=== PATIENT | male | born 1960 | race Hispanic/Latino ===

== ENCOUNTER 2024-01-08 19:04 | Inpatient (IN) | payer BC ==
[~2024-01-08] VITALS: Ht 167.6 cm; Wt 107.2 kg
[~2024-01-08 19:04] MED LIST: DEXAMETHASONE SOD PHOS INJ 4 MG/ML SDV ONE; EPHEDRINE SULFATE INJ 50 MG/ML VIAL ONE; LIDOCAINE HCL 2% LOCAL INJ 5 ML SDV VIAL INJ ONE; ONDANSETRON HCL INJ 2MG/ML 2ML 2 MG/ML VIAL ONE; PROPOFOL IV EMULSION 10 MG/ML 20 ML VIAL ONE; ROCURONIUM BROMIDE 10 MG/ML 5ML VIAL IV ONE; SEVOFLURANE INHAL SOLN 250 ML PEN BTL ONE
[2024-01-08 19:30] VITALS: PULSE 99; RESP 18; TEMP 101.2
[2024-01-08] MEDS ORDERED: IOPAMIDOL 370 MG/ML 100 ML INFUS..BTL INJ ONE (19:30)
[2024-01-08] MEDS: SODIUM CHLORIDE 0.9% 1000ML 1,000 ML IV STA (20:02)
[2024-01-08] MEDS: ACETAMINOPHEN 325 MG TAB PO STA (20:02)
[2024-01-08] MEDS: FAMOTIDINE 20 MG/2 ML VIAL IV STA (20:02)
[2024-01-08] MEDS ORDERED: ONDANSETRON HCL INJ 2MG/ML 2ML 2 MG/ML VIAL IV PRN (20:30)
[2024-01-08 21:29] VITALS: BP 129/65; PULSE 84; RESP 18; TEMP 98.3; O2SAT 96
[2024-01-08 22:00] VITALS: BP 129/65; PULSE 84; RESP 18; TEMP 98.3; O2SAT 96
[2024-01-08] MEDS: SODIUM CHLORIDE 0.9% 1000ML 1,000 ML IV SCH (23:08)
[2024-01-09] VITALS (7 sets, daily range): BP systolic 116–147; BP diastolic 63–70; PULSE 65–85; RESP 16–22; TEMP 97.5–98; O2SAT 97–99
[2024-01-09] MEDS ORDERED: LISINOPRIL10 MG PO (04:27)
[2024-01-09] MEDS ORDERED: HYDRALAZINE HCL50 MG PO (04:28)
[2024-01-09] MEDS ORDERED: CRESTOR40 MG (04:30)
[2024-01-09] MEDS ORDERED: FUROSEMIDE20 MG PO (04:31)
[2024-01-09] MEDS ORDERED: AMLODIPINE BESYL5 MG PO (04:34)
[2024-01-09] MEDS ORDERED: FERROUS SULFAT325 M1 PO (04:34)
[2024-01-09] MEDS ORDERED: HERCEPTIN150 MG SC (04:34)
[2024-01-09] MEDS ORDERED: ALBUTEROL/IPRATROPIUM 3 ML NEB NEB PRN (06:30)
[2024-01-09] MEDS ORDERED: ACETAMINOPHEN 325 MG TAB PO PRN (06:30)
[2024-01-09 10:00] LABS: BASOPHILS # (AUTO) 0.1 (0.0-0.1); BASOPHILS % 0.3 % (0.0-1.0); EOSINOPHILS # (AUTO) 0.2 (0.0-0.4); EOSINOPHILS % 0.8 % (0.0-6.0); HEMATOCRIT 33.6 % (38.2-49.6); LYMPHOCYTES # (AUTO) 1.1 (1.0-3.2); LYMPHOCYTES % 5.8 % (18.0-39.1); MEAN CORPUSCULAR HEMOGLOBIN 30.2 pg (28-32); MEAN CORPUSCULAR HGB CONC 32.7 g/dL (31-35); MEAN CORPUSCULAR VOLUME 92.3 fL (81-99); MONOCYTES # (AUTO) 1.2 (0.2-0.8); MONOCYTES % 6.6 % (4.4-11.3); NEUTROPHILS % 85.8 % (38.7-80.0); PLATELET COUNT 189 x10e3/uL (140-360); RED BLOOD COUNT 3.64 x10e6/uL (4.3-5.7); RED CELL DISTRIBUTION WIDTH 12.9 % (11.7-14.4); WHITE BLOOD COUNT 18.66 x10e3/uL (4.8-10.8)
[2024-01-09 10:19] LABS: ALBUMIN 2.7 g/dL (3.5-5.0); BILIRUBIN,TOTAL 1.4 mg/dL (0.2-1.2); CHOL/HDL RATIO 4.9 (3.9-4.7); TOTAL PROTEIN 6.5 g/dL (6.5-8.1)
[2024-01-09] MEDS ORDERED: BUPIVACAINE 0.25% 30ML SDV ONE (10:33)
[2024-01-09] MEDS ORDERED: BUPIVACAINE 0.5%/EPI 30 ML SDV INJ ONE (10:33)
[2024-01-09 11:16] LABS: ALBUMIN 2.7 g/dL (3.5-5.0); ALBUMIN/GLOBULIN RATIO 0.7 (0.8-2.0); ANION GAP 16.7 mmol/L (8-16); BILIRUBIN,TOTAL 1.4 mg/dL (0.2-1.2); CALCIUM 7.4 mg/dL (8.4-10.2); CREATININE, SERUM 3.43 mg/dL (0.72-1.25); POTASSIUM 3.7 mmol/L (3.5-5.1); TOTAL PROTEIN 6.6 g/dL (6.5-8.1)
[2024-01-09] MEDS ORDERED: FENTANYL CITRATE/PF 100MCG/2 ML INJ ONE (12:41)
[2024-01-09] MEDS ORDERED: MIDAZOLAM HCL 2 MG/2 ML VIAL ONE (12:41)
[2024-01-09] MEDS: Morphine 4mg INJECTION 4 MG/ML INJ IV PRN (21:41)
[2024-01-10] VITALS (8 sets, daily range): BP systolic 134–167; BP diastolic 69–82; PULSE 75–84; RESP 18–20; TEMP 97.5–98.6; O2SAT 97–98
[2024-01-10] MEDS: LIDOCAINE HCL 2% LOCAL 20 ML VIAL INJ ONE ×2 (01:19)
[2024-01-10] MEDS ORDERED: DEXTROSE 50% SYRINGE 50 ML IV PRN (08:00)
[2024-01-10 08:17] LABS: BASOPHILS % 0.1 % (0.0-1.0); EOSINOPHILS % 0.1 % (0.0-6.0); HEMATOCRIT 29.6 % (38.2-49.6); HEMOGLOBIN 9.7 g/dL (14.0-18.0); LYMPHOCYTES % 6.1 % (18.0-39.1); MEAN CORPUSCULAR HEMOGLOBIN 30.1 pg (28-32); MEAN CORPUSCULAR HGB CONC 32.8 g/dL (31-35); MEAN CORPUSCULAR VOLUME 91.9 fL (81-99); MONOCYTES % 6.2 % (4.4-11.3); NEUTROPHILS # (AUTO) 14.1 (2.1-6.9); NEUTROPHILS % 86.5 % (38.7-80.0); PLATELET COUNT 209 x10e3/uL (140-360); RED BLOOD COUNT 3.22 x10e6/uL (4.3-5.7); RED CELL DISTRIBUTION WIDTH 12.8 % (11.7-14.4); WHITE BLOOD COUNT 16.33 x10e3/uL (4.8-10.8)
[2024-01-10 08:29] LABS: ANION GAP 15.2 mmol/L (8-16); CALCIUM 7.6 mg/dL (8.4-10.2); CREATININE, SERUM 3.11 mg/dL (0.72-1.25); POTASSIUM 4.2 mmol/L (3.5-5.1)
[2024-01-10] MEDS: AMLODIPINE BESYLATE 5 MG TAB PO SCH (08:59)
[2024-01-10] MEDS: FERROUS SULFATE 325 MG TAB PO SCH (08:59)
[2024-01-10] MEDS: HYDRALAZINE HCL 25 MG TAB PO SCH (08:59)
[2024-01-10] MEDS ORDERED: DOCUSATE SODIUM 100 MG CAP PO PRN (09:00)
[2024-01-10] MEDS ORDERED: MELATONIN 3 MG TAB PO PRN (09:00)
[2024-01-10] MEDS ORDERED: SODIUM BICARBONATE 8.4% SYRING 100 ML in SODIUM CHLORIDE 0.45% 1,000 ML IV SCH (09:00)
[2024-01-10] MEDS: SENNOSIDES 8.6 MG TAB PO SCH (12:06)
[2024-01-10] MEDS: INSULIN REGULAR, HUMAN 100 UNIT/1 ML SQ SCH (12:10)
[2024-01-10] MEDS: SODIUM BICARBONATE 8.4% VIAL 100 ML in SODIUM CHLORIDE 0.45% 1,000 ML IV SCH (12:18)
[2024-01-11] VITALS (7 sets, daily range): BP systolic 145–171; BP diastolic 72–88; PULSE 72–84; RESP 18–20; TEMP 97.5–98; O2SAT 96–98
[2024-01-11 05:18] LABS: BASOPHILS % 0.3 % (0.0-1.0); EOSINOPHILS # (AUTO) 0.2 (0.0-0.4); EOSINOPHILS % 1.7 % (0.0-6.0); HEMATOCRIT 27.6 % (38.2-49.6); LYMPHOCYTES # (AUTO) 1.9 (1.0-3.2); LYMPHOCYTES % 18.4 % (18.0-39.1); MEAN CORPUSCULAR HEMOGLOBIN 29.9 pg (28-32); MEAN CORPUSCULAR HGB CONC 32.6 g/dL (31-35); MEAN CORPUSCULAR VOLUME 91.7 fL (81-99); MONOCYTES # (AUTO) 0.9 (0.2-0.8); NEUTROPHILS # (AUTO) 7.3 (2.1-6.9); NEUTROPHILS % 69.4 % (38.7-80.0); PLATELET COUNT 226 x10e3/uL (140-360); RED BLOOD COUNT 3.01 x10e6/uL (4.3-5.7); RED CELL DISTRIBUTION WIDTH 12.9 % (11.7-14.4); WHITE BLOOD COUNT 10.47 x10e3/uL (4.8-10.8)
[2024-01-11 05:37] LABS: ANION GAP 12.7 mmol/L (8-16); CALCIUM 7.2 mg/dL (8.4-10.2); CREATININE, SERUM 2.55 mg/dL (0.72-1.25); POTASSIUM 3.7 mmol/L (3.5-5.1)
[2024-01-11 06:00] LABS: MAGNESIUM 1.8 MG/DL (1.3-2.1); PHOSPHORUS 2.7 MG/DL (2.3-4.7)
[2024-01-11] MEDS: METOPROLOL TARTRATE INJ 1 MG/ML VIAL IV PRN (09:09)
[2024-01-11] MEDS ORDERED: ONDANSETRON HCL 4 MG ORAL DISINTEGRATING TAB PO PRN (09:45)
[2024-01-11] MEDS ORDERED: SENOKOT8.6 MG PO (10:09)
[2024-01-11] MEDS ORDERED: ONDANSETRON ODT4 MG PO (10:09)
[2024-01-11] MEDS ORDERED: METRONIDAZOLE500 MG PO (10:09)
[2024-01-11] MEDS: METOPROLOL TARTRATE 25 MG TAB PO SCH (12:35)
== END 2024-01-11 14:21 | disposition home or self-care (01) | DRG 854 ==
LOC: FSED 19:09 → ERHOLD 20:30 → MED/SURG 21:29
PROVIDERS: ADMIT Internal Medicine; ATTEND Internal Medicine
PROC: 3E0333Z Introduction of Anti-inflammatory into Peripheral Vein, Percutaneous Approach (ICD-10-PCS; 2024-01-08)
PROC: 0FT44ZZ Resection of Gallbladder, Percutaneous Endoscopic Approach (ICD-10-PCS; principal; 2024-01-09 10:40)
DX: A41.9 Sepsis, unspecified organism (principal); E87.1 Hypo-osmolality and hyponatremia; K80.00 Calculus of gallbladder with acute cholecystitis without obstruction; N17.9 Acute kidney failure, unspecified; N18.4 Chronic kidney disease, stage 4 (severe); K82.A1 Gangrene of gallbladder in cholecystitis; R73.9 Hyperglycemia, unspecified; K52.9 Noninfective gastroenteritis and colitis, unspecified; K57.90 Diverticulosis of intestine, part unspecified, without perforation or abscess without bleeding; R74.01 Elevation of levels of liver transaminase levels; Z11.52 Encounter for screening for COVID-19
CPT/HCPCS: 0223U; 36415; 74176; 80048; 80053; 80061; 80076; 81003; 82948; 83036; 83735; 84100; 84484; 85025; 87040; 87400; 88304; 94799; 99284; J0690; J1100; J2001; J2250; J2270; J2405; J2543; J7030; Q9967